=== PATIENT | female | born 1995 | race Caucasian/White ===

== ENCOUNTER 2017-08-29 14:22 | Emergency (ER) | payer OTHER ==
[2017-08-29] MEDS ORDERED: ONDANSETRON 4 MG/2 ML VIAL IVPUSH ONE (14:33)
[2017-08-29] MEDS ORDERED: SODIUM CHLORIDE 1,000 ML IV STA ×2 (14:33→15:17)
[2017-08-29] MEDS ORDERED: ACETAMINOPHEN 1000 MG/100 ML VIAL (NON FORMULARY) IVPB ONE (14:33)
--- NOTE | 2017-08-29 14:35 | PDOC ---
Attending Attestation - Resident Resident Name: Stef Hurtado - HPI HPI: 08/29/17 15:01 Pt presents to the ED complaining of nausea, lightheadness and presyncope. Patient was in her usual state of health until 2 hours ago, when she became lightheaded and diaphoretic after having diarrhea. Diaphoresis resolved, but patient is still complaining of persistent lightheadness. Denies abdominal pain , chest pain or shortness of breath. - Physicial Exam PE: 08/29/17 15:07 Agree with resident exam. Patient is alert and well appearing on my exam. Lungs are clear. heart has regular rate and rhythm. Abdomen is soft, non tender and non distended, without guarding or rebound. - Medical Decision Making 08/31/17 08:30 PT presents to the ED complaining of diarrhea and lightheadness. Now reports that she ate rice that had been sitting at room temperature for several hours. Feels improved after IV hydration and nausea control. Labs are within normal limits. Will discharge home.
[2017-08-29] MEDS ORDERED: ONDANSETRON 4 MG/2 ML VIAL ONE (14:37)
--- NOTE | 2017-08-29 14:37 | PDOC ---
History of Present Illness - General Chief Complaint: Pain Stated Complaint: WEAKNESS Time Seen by Provider: 08/29/17 14:32 - History of Present Illness Initial Comments: 08/29/17 14:35 Ms. Garcia is a 22 yo female w/ no pmh who presents for evaluation of sudden onset nausea, diaphoresis, and presyncope approximately 20 minutes ago. She reports she was feeling in her normal state of health until she went to use the bathroom and had all of these symptoms occur during a bowel movement. She has had the urge to vomit however has not. BM was solid followed by diarrhea. Ms. Garcia reports she had leftover rice for lunch earlier today. The patient denies chest pain, shortness of breath, and headache. Denies fever, chills, and constipation. Denies dysuria, frequency, urgency and hematuria. Allergies: NKDA Past History - Past Medical History Allergies/Adverse Reactions: Allergies Allergy/AdvReac Type Severity Reaction Status Date / Time No Known Allergies Allergy Verified 08/29/17 14:31 - Suicide/Smoking/Psychosocial Hx Smoking History: Never smoked Have you smoked in the past 12 months: No Information on smoking cessation initiated: No Hx Alcohol Use: No Drug/Substance Use Hx: No Review of Systems - Review of Systems Comments:: 08/29/17 14:37 GENERAL/CONSTITUTIONAL: No fever or chills. No weakness. HEAD, EYES, EARS, NOSE AND THROAT: No change in vision. No ear pain or discharge. No sore throat. CARDIOVASCULAR: No chest pain or shortness of breath RESPIRATORY: No cough, wheezing, or hemoptysis. GASTROINTESTINAL: +Nausea w/ diarrhea and urge to vomit. No constipation. GENITOURINARY: No dysuria, frequency, or change in urination. MUSCULOSKELETAL: No joint or muscle swelling or pain. No neck or back pain. SKIN: No rash NEUROLOGIC: +Presyncope without loss of consciousness. No headache, vertigo, loss of consciousness, or change in strength/sensation. ENDOCRINE: No increased thirst. No abnormal weight change HEMATOLOGIC/LYMPHATIC: No anemia, easy bleeding, or history of blood clots. ALLERGIC/IMMUNOLOGIC: No hives or skin allergy. *Physical Exam - Vital Signs Last Vital Signs Temp Pulse Resp BP Pulse Ox 98.2 F 75 16 113/63 100 08/29/17 14:28 08/29/17 14:28 08/29/17 14:28 08/29/17 14:28 08/29/17 14:28 - Physical Exam Comments: 08/29/17 14:37 GENERAL: Awake, alert, and fully oriented, in no acute distress HEAD: No signs of trauma, normocephalic, atraumatic EYES: PERRLA, EOMI, sclera anicteric, conjunctiva clear ENT: Auricles normal inspection, hearing grossly normal, nares patent, oropharynx clear without exudates. Moist mucosa NECK: Normal ROM, supple, no lymphadenopathy, JVD, or masses LUNGS: No distress, speaks full sentences, clear to auscultation bilaterally HEART: Regular rate and rhythm, normal S1 and S2, no murmurs, rubs or gallops, peripheral pulses normal and equal bilaterally. ABDOMEN: +Generalized abdominal discomfort w/out TTP. Otherwise soft, normoactive bowel sounds. No guarding, no rebound. No masses EXTREMITIES: Normal inspection, Normal range of motion, no edema. No clubbing or cyanosis. NEUROLOGICAL: Cranial nerves II through XII grossly intact. Normal speech, normal gait, no focal sensorimotor deficits SKIN: Warm, Dry, normal turgor, no rashes or lesions noted. ED Treatment Course - LABORATORY CBC & Chemistry Diagram: 08/29/17 14:33 08/29/17 14:33 Medical Decision Making - Medical Decision Making 08/29/17 15:55 Ms. Garcia is a 22 yo female w/ pmh as described who presents for evaluation after presyncopal episode. Patient reporting relief after tylenol, zofran, and fluids. Labs grossly wnl as below. Patient not . 08/29/17 16:06 Discharging patient to home w/ instructions to f/u as needed for further evaluation. Patient verbalized understanding and agreement and will comply. Laboratory Results - last 24 hr 08/29/17 08/29/17 08/29/17 14:33 14:33 14:33 WBC 7.2 RBC 4.35 Hgb 12.2 Hct 37.0 MCV 85.1 MCH 28.0 MCHC 32.9 RDW 12.9 Plt Count 217 MPV 10.3 Neutrophils % 61.4 Lymphocytes % 26.8 Monocytes % 9.4 Eosinophils % 2.0 Basophils % 0.4 Nucleated RBC % 0 Sodium 139 Potassium 3.7 Chloride 105 Carbon Dioxide 27 Anion Gap 7 L BUN 11 Creatinine 1.2 H Creat Clearance w eGFR 55.19 Random Glucose 88 Calcium 8.2 L Total Bilirubin 0.3 AST 18 ALT 20 Alkaline Phosphatase 58 Total Protein 6.6 Albumin 3.7 Serum , Qual Negative *DC/Admit/Observation/Transfer Diagnosis at time of Disposition: Pre-syncope Diarrhea Qualifiers: Diarrhea type: unspecified type Qualified Code(s): R19.7 - Diarrhea, unspecified - Discharge Dispostion Disposition: HOME - Referrals - Patient Instructions Printed Discharge Instructions: DI for Diarrhea and Traveler's Diarrhea -- Adult, DI for Syncope in Adults (Fainting) Additional Instructions: Please follow-up with primary care provider as needed for further evaluation. Return to ER if any return of nausea, vomiting, fever, chills, pain, or other concerning symptoms. We hope you feel better soon! - Post Discharge Activity
[2017-08-29] MEDS ORDERED: ACETAMINOPHEN INJECTION 100 ML IVPB ONE (14:39)
[2017-08-29 15:00] LABS: BASO % 0.4 % (0-2.0); HEMOGLOBIN 12.2 GM/dL (10.7-15.3); LYMPH % 26.8 % (8-40); MCHC 32.9 g/dl (32.0-36.0); MEAN CELL VOLUME 85.1 fl (80-96); MEAN PLT VOLUME 10.3 fl (7.5-11.1); MONO % 9.4 % (3.8-10.2); NEUT % 61.4 % (42.8-82.8); PLATELET COUNT 217 K/MM3 (134-434); RBC 4.35 M/mm3 (3.60-5.2); RDW 12.9 % (11.6-15.6); WHITE BLOOD COUNT 7.2 K/mm3 (4.0-10.0)
[2017-08-29 15:02] VITALS: TEMP 98.2; BMI 22.1
[2017-08-29] MEDS ORDERED: MAG HYDROX/AL HYDROX/SIMETH 30 ML UNIT-DOSE CUP PO ONE (15:17)
[2017-08-29 15:19] LABS: ALBUMIN 3.7 g/dl (3.4-5.0); ALK PHOS 58 U/L (45-117); ANION GAP 7 (8-16); BILIRUBIN,TOTAL 0.3 mg/dL (0.2-1.0); BLOOD UREA NITROGEN 11 mg/dL (7-18); CALCIUM 8.2 mg/dL (8.5-10.1); CHLORIDE 105 mmol/L (98-107); CO2 27 mmol/L (21-32); CREATININE 1.2 mg/dL (0.55-1.02); GLUCOSE,RANDOM 88 mg/dL (74-106); POTASSIUM 3.7 mmol/L (3.5-5.1); SGOT/AST 18 U/L (15-37); SGPT/ALT 20 U/L (12-78); SODIUM 139 mmol/L (136-145); TOT PROT 6.6 g/dl (6.4-8.2)
[2017-08-29] MEDS ORDERED: MAG HYDROX/AL HYDROX/SIMETH 30 ML UNIT-DOSE CUP ONE (16:51)
[2017-08-29 17:13] VITALS: BP 117/68; PULSE 74
== END 2017-08-29 17:13 | disposition home or self-care (01) ==
LOC: JER 14:22
PROC: 3E033GC Introduction of Other Therapeutic Substance into Peripheral Vein, Percutaneous Approach (ICD-10-PCS; principal; 2017-08-29)
PROC: 3E033NZ Introduction of Analgesics, Hypnotics, Sedatives into Peripheral Vein, Percutaneous Approach (ICD-10-PCS; 2017-08-29)
DX: R55 Syncope and collapse (principal)
CPT/HCPCS: 36415; 80053; 84703; 85025; 99283-25; J0131; J7030